=== PATIENT | male | born 1985 | race Caucasian/White ===

== ENCOUNTER 2017-02-05 15:35 | Emergency (ER) | payer OTHER ==
[2017-02-05 15:42] VITALS: BP 127/79; PULSE 63; RESP 18; TEMP 98.2; O2SAT 98
[2017-02-05] MEDS ORDERED: DiphenhydrAMINE 12.5 mg/5 ml LIQ UD (5 ml) PO STA (15:57)
--- NOTE | 2017-02-05 16:06 | C.PDOC ---
History Of Present Illness 31 y/o male presents to ED with complaints of itchy rash across body worse to shoulders and upper extremities for 2-3 weeks. Patient reports rash mildly priuritic and denies new lotion use, new detergents or known allergens. Patient denies seeing doctor for symptoms and denies fever, weakness, sob, numbness or any other complaints at this time. Time Seen by Provider: 02/05/17 15:49 Chief Complaint (Nursing): Abnormal Skin Integrity History Per: Patient History/Exam Limitations: no limitations Onset/Duration Of Symptoms: Days Current Symptoms Are (Timing): Still Present Quality Of Symptoms: Itching Past Medical History Reviewed: Historical Data, Nursing Documentation, Vital Signs Vital Signs: Last Vital Signs Temp 98.2 F 02/05/17 15:40 Pulse 63 02/05/17 15:40 Resp 18 02/05/17 15:40 BP 127/79 02/05/17 15:40 Pulse Ox 98 02/05/17 17:29 Family History: States: Unknown Family Hx - Social History Hx Alcohol Use: No Hx Substance Use: No - Immunization History Hx Tetanus Toxoid Vaccination: No Hx Influenza Vaccination: No Hx Pneumococcal Vaccination: No Review Of Systems Except As Marked, All Systems Reviewed And Found Negative. Constitutional: Negative for: Fever Respiratory: Negative for: Shortness of Breath Skin: Positive for: Rash Physical Exam - Physical Exam Appears: Non-toxic, No Acute Distress Skin: Warm, Rash (macular papular rash diffuse, more on shoulder and upper extremities. minimal to torso and lower extremities) Head: Atraumatic, Normacephalic Eye(s): bilateral: Normal Inspection Nose: Normal Oral Mucosa: Moist Tongue: Normal Appearing, No Swelling Lips: Normal Appearing, No Swelling Throat: Normal, No Erythema Neck: Supple Chest: Symmetrical Cardiovascular: Rhythm Regular, No Murmur Respiratory: Normal Breath Sounds, No Rales, No Rhonchi, No Wheezing Neurological/Psych: Oriented x3, Normal Speech, Normal Motor, Normal Sensation ED Course And Treatment O2 Sat by Pulse Oximetry: 98 (RA) Pulse Ox Interpretation: Normal Medical Decision Making Medical Decision Making: suspect allergic rxn, contact dermatitis, vs non specific rash. will treat supportively. advise outpt f/u , pt declines observation in er s/p medication administration. Disposition - Disposition Referrals: [facility] [Outside] [facility] [Outside] [facility] [Outside] Disposition: HOME/ ROUTINE Disposition Time: 04:00 Condition: STABLE Additional Instructions: please follow up with your doctor. return to er with worsening symptoms or concerns. please see specialist. Prescriptions: DiphenhydrAMINE [Benadryl] 25 mg PO Q4 PRN #10 cap PRN Reason: Itching / Pruritus Famotidine [Pepcid] 20 mg PO DAILY #10 tab Prednisone 50 mg PO DAILY #4 tablet Instructions: Acute Rash (ED) Forms: [employer] [facility] ([place]) - Clinical Impression Clinical Impression: Rash - PA / COMMUNITY ENGAGEMENT REPRESENTATIVE / Resident Statement MD/DO has examined the patient and agrees with the treatment plan. - Scribe Statement The provider has reviewed the documentation as recorded by the Milliibfrank Cotres All medical record entries made by the Milliibfrank were at my direction and personally dictated by me. I have reviewed the chart and agree that the record accurately reflects my personal performance of the history, physical exam, medical decision making, and the department course for this patient. I have also personally directed, reviewed, and agree with the discharge instructions and disposition.
== END 2017-02-05 16:32 | disposition home or self-care (01) ==
LOC: C.ER 15:35
DX: R21 Rash and other nonspecific skin eruption (principal)